=== PATIENT | female | born 1960 | race Caucasian/White ===

== ENCOUNTER → 2018-12-25 | Outpatient (CLI) | payer OTHER ==
[~2018-12-25] MED LIST: REGADENOSON 0.4 MG/5 ML DISP.SYRIN. IV ONE
--- NOTE | 2018-12-25 11:01 | PCVCIMAG ---
APPROVED REPORT Study performed: 12/25/2018 09:45:57 EXAM: Comprehensive 2D, Doppler, and color-flow Echocardiogram Patient Location: Echo lab Status: routine BSA: 1.92 HR: 108 bpmBP: 176/98 mmHg Rhythm: Atrial Fibrillation Other Information Study Quality: Adequate Risk Factors: Cardiac Risk Factors: HTN Indications Pre-Op Atrial Fibrillation 2D Dimensions IVSd: 16.01 (7-11mm) LVDd: 37.64 mm PWd: 13.01 (7-11mm)Ascending Ao: 39.27 (22-36mm) LVDs: 28.60 (25-40mm) Left Atrium: 39.84 (27-40mm) Aortic Root: 31.85 mm LV Single Plane 4CH: 39.58 % LV Single Plane 2CH: 45.60 % Biplane EF: 41.9 % Volumes Left Atrial Volume (Systole) Single Plane 4CH: 83.10 mLSingle Plane 2CH: 78.25 mL LA ESV Index: 43.00 mL/m2 Aortic Valve AoV Peak Mikey.: 1.26 m/s AO Peak Gr.: 6.75 mmHgLVOT Max P.43 mmHg LVOT Max V: 0.78 m/s Pulmonary Valve PV Peak Mikey.: 0.69 m/sPV Peak Gr.: 1.98 mmHg Tricuspid Valve TR Peak Mikey.: 2.50 m/s TR Peak Gr.: 25.01 mmHg Left Ventricle The left ventricle is normal size. There is normal LV segmental wall motion. Moderate concentric left ventricular hypertrophy. Left ventricular systolic function is mildly decreased globally. LVEF is 50%. This study is not technically sufficient to allow evaluation of the LV diastolic function due to atrial fibrillation. Right Ventricle The right ventricle is normal size. The right ventricular systolic function is normal. Atria Left atrium is moderately dilated. Right atrium is moderately dilated. Aortic Valve The aortic valve is normal in structure. No aortic regurgitation is present. There is no aortic valvular stenosis. Mitral Valve The mitral valve is normal in structure. There is no mitral valve regurgitation noted. No evidence of mitral valve stenosis. Tricuspid Valve The tricuspid valve is normal in structure. Trace tricuspid regurgitation with PAP of 35 mmHg. Pulmonic Valve The pulmonary valve is normal in structure. There is no pulmonic valvular regurgitation. Great Vessels The aortic root is normal in size. IVC is normal in size and collapses >50% with inspiration. Pericardium There is no pericardial effusion. There is no pleural effusion. <Conclusion> The left ventricle is normal size. LVEF is 50%. Left atrium is moderately dilated. Right atrium is moderately dilated. The aortic valve is normal in structure. The mitral valve is normal in structure. The tricuspid valve is normal in structure. Trace tricuspid regurgitation with PAP of 35 mmHg. The pulmonary valve is normal in structure. There is no pericardial effusion.
--- NOTE | 2018-12-25 16:32 | PCVCIMAG ---
APPROVED REPORT Imaging Protocol: Rest Tc-99m/Stress Tc-99m 1 day Study performed: 12/25/2018 10:49:57 Indication: Afib, Abn EKG, Pre OP Patient Location: Out-Patient Stress Nurse: Stacey Angelo RN, Tawny Tan RN CT Tech:Ej [email or web address] Ht: 5 ft 2 in Wt: 201 lbs BSA: 1.92 m2 HR: 115 bpm BP: 174/98 mmHg BMI: 36.75 Rhythm: Afib Medical History Medical History: Age, Hyperlipidemia, HTN, Former Smoker Medications: ASA Allergies: PCN Pretest Chest Pain Characteristics: No chest pain Exercise History: Physically active Resting Data Rest SPECT myocardial perfusion imaging was performed in supine position 45 minutes following the intravenous injection of 14.8 mCi of Tc-99m Sestamibi. Time of rest injection: 1050 Date: 12/25/2018 Administration Route: IV Administration Site: Left Hand Pharmacologic Stress Pharmacologic stress test was performed by injecting Regadenoson 0.4 mg IV push over 10-15 seconds immediately followed by the intravenous injection of 40.2 mCi of Tc-99m Sestamibi. Time of stress injection: 1205 Date: 12/25/2018 Administration Route: IV Administration Site: Left Hand Gated Stress SPECT was performed 45 minutes after stress injection. The images were gated to evaluate regional wall motion and calculate left ventricular ejection fraction. Stress Test Details Stress Test: Pharmacologic stress testing performed using 0.4 mg of regadenoson per 5 mL given IV over 10 seconds. Reason for pharmacologic stress test: physical limitation. HRMax Heart Rate (APMHR): 164 bpm Resting HR: 115 bpmTarget HR (85% APMHR): 139 bpm Max HR Achieved: 125 bpm % of APMHR: 76 Recovery HR: 115 bpm BP Resting BP: 174/98 mmHg Max BP: 168/74 mmHg Recovery BP: 174/96 mmHg ECG Resting ECG: Afib Stress ECG: Afib ST Change: Non-ischemic Arrhythmia: PVC's Recovery ECG: Afib Clinical Reason for Termination: Completed protocol Stress Symptoms: Headache, Lightheaded Exercise duration: min 55 sec Symptoms resolved with caffeine. Study Quality Study: Good Artifact: Mild Breast artifact Study Data Post stress, the left ventricular ejection was 49%.. SSS: 0 SRS: 0 SDS: 0 TID = 1.17. Perfusion There is a small area of mildly reduced uptake in the apical segment of the anterior wall which is seen on the stress images as well as the resting images. This area thickens and moves normally and is most consistent with attenuation artifact. Wall Motion Normal left ventricular wall motion. Nuclear Conclusion ECG Findings: negative for ischemia Clinical Findings: non-diagnostic Nuclear Findings: negative for ischemia Exercise Capacity: not assessed Left Ventricular Function: normal Risk Study: low This study is of low probability for inducible ischemia or prior infarct. Normal global and segmental LV systolic function. Artifact: Mild Breast artifact
== END | disposition home or self-care (01) ==
LOC: EDSTATUS 08:43 → PCVCIMAG 09:26 → EDBD 09:26 → EDSTATUS 12:24 → PCVCIMAG 12:25
PROVIDERS: ATTEND Internal Medicine Cardiovascular Disease
DX: Z01.810 Encounter for preprocedural cardiovascular examination (principal); I48.0 Paroxysmal atrial fibrillation; R94.31 Abnormal electrocardiogram [ECG] [EKG]
CPT/HCPCS: 78452; 93017; 93306; A9500; J2785